=== PATIENT | female | born 1990 | race Caucasian/White ===

== ENCOUNTER 2022-02-14 06:32 | Emergency (ER) | payer MEDICAID ==
[~2022-02-14] VITALS: Ht 154.9 cm; Wt 77.4 kg
[2022-02-14 06:50] VITALS: BP 119/62
[2022-02-14] MEDS ORDERED: ALBUTEROL (0.5%) 2.5MG/0.5ML NEB HHN ONE (08:30)
[2022-02-14] MEDS ORDERED: ALBU6.7H3 INH (08:39)
[2022-02-14] MEDS ORDERED: P50 MT (08:39)
== END 2022-02-14 09:17 | disposition home or self-care (01) ==
LOC: ER 06:32
DX: J45.901 Unspecified asthma with (acute) exacerbation (principal); Z98.890 Other specified postprocedural states
CPT/HCPCS: 81025; 94640; 99283; Z7610

== ENCOUNTER 2023-04-24 08:49 | Emergency (ER) | payer MEDICAID, OTHER ==
[~2023-04-24] VITALS: Ht 167.6 cm; Wt 83.0 kg
[~2023-04-24 08:49] MED LIST: ALBU6.7H3 INH; P50 MT
[2023-04-24 08:55] VITALS: TEMP 99.3; O2SAT 100
[2023-04-24 09:37] LABS: BASOPHILS % 0.4 % (0.0-2.0); EOSINOPHILS % 0.1 % (0.0-5.0); HEMATOCRIT. 35.7 % (36.0-48.0); HEMOGLOBIN. 11.9 g/dL (12.0-16.0); LYMPHOCYTES % 13.8 % (20.0-50.0); MEAN CORPUSCULAR HEMOGLOBIN 29.8 pg (28.0-32.0); MEAN CORPUSCULAR HGB CONC 33.4 g/dL (31.0-37.0); MEAN CORPUSCULAR VOLUME 89.3 fL (81.0-99.0); MEAN PLATELET VOLUME 8.5 fl (7.4-10.4); NEUTROPHILS % 79.7 % (40.0-76.0); PLATELET 241 x1000/uL (130-400); RED BLOOD CELL COUNT 3.99 mill/uL (4.2-5.4); RED CELL DISTRIBUTION WIDTH 13.2 % (11.6-14.6); WHITE BLOOD COUNT 7.1 x1000/uL (4.5-11.0)
[2023-04-24 09:48] LABS: ALANINE AMINOTRANSFERASE 11 IU/L (10-49); ALBUMIN 4.5 g/dL (3.2-4.8); ASPARTATE AMINOTRANSFERASE 11 IU/L (<34); BILIRUBIN TOTAL 0.6 mg/dL (0.1-1.0); CALCIUM 8.8 mg/dL (8.7-10.4); CARBON DIOXIDE 26 mEq/L (21-32); CHLORIDE 107 mEq/L (98-107); CREATININE 0.7 mg/dL (0.6-1.0); GLUCOSE 157 mg/dL (70-105); PROTEIN TOTAL 7.6 g/dL (6.0-8.3); SODIUM 138 mEq/L (136-145); UREA NITROGEN BLOOD 9 mg/dL (9-23)
[2023-04-24 09:55] LABS: CLARITY URINE CLEAR (CLEAR); COLOR URINE YELLOW (YELLOW); GLUCOSE URINE NEGATIVE (NEGATIVE); KETONES URINE NEGATIVE (NEGATIVE); NITRITE URINE NEGATIVE (NEGATIVE); OCCULT BLOOD URINE TRACE (NEGATIVE); PROTEIN URINE NEGATIVE (NEGATIVE); SPECIFIC GRAVITY URINE 1.015 (1.005-1.030); UROBILINOGEN URINE 0.2 E.U./dL (0.2-1.0)
[2023-04-24 09:56] LABS: LEUKOCYTE ESTERASE URINE TRACE (NEGATIVE)
[2023-04-24 10:03] LABS: BACTERIA URINE 1+; SQUAMOUS EPITHELIAL CELL URINE 1+ /lpf (RARE/1+); YEAST URINE NONE SEEN
[2023-04-24] MEDS ORDERED: IBUPROFEN 600MG TABLET PO ONE (15:00)
[2023-04-24] MEDS ORDERED: NITR-87 MT (18:29)
[2023-04-24] MEDS ORDERED: IBUPROFEN 600MG TABLET PO NR (19:15)
[2023-04-24 20:14] VITALS: BP 117/65; PULSE 116; RESP 18
== END 2023-04-24 20:05 | disposition home or self-care (01) ==
LOC: ER 08:49
DX: N39.0 Urinary tract infection, site not specified (principal); J45.909 Unspecified asthma, uncomplicated; Z98.890 Other specified postprocedural states
CPT/HCPCS: 36415; 74176; 76770; 76830; 76856; 80053; 81003; 81025; 85025; 99284